=== PATIENT | male | born 2000 | race Hispanic/Latino ===

== ENCOUNTER 2024-01-12 21:00 | Emergency (ER) | payer SELFPAY ==
[~2024-01-12] VITALS: Ht 172.7 cm; Wt 81.6 kg
[2024-01-12 21:27] VITALS: TEMP 98.6
[2024-01-13] MEDS: BUPIVACAINE HCL 0.25% 10ML MPF VIAL INJ ONE (03:05)
[2024-01-13] MEDS ORDERED: CEPHALEXIN500 MG PO (03:59)
[2024-01-13 04:31] VITALS: PULSE 63; RESP 16; O2SAT 100
== END 2024-01-13 04:33 | disposition home or self-care (01) ==
LOC: ER 21:47
DX: S61.317A Laceration without foreign body of left little finger with damage to nail, initial encounter (principal); W23.2XXA Caught, crushed, jammed or pinched between a moving and stationary object, initial encounter; Y92.89 Other specified places as the place of occurrence of the external cause; F17.210 Nicotine dependence, cigarettes, uncomplicated
CPT/HCPCS: 99283